=== PATIENT | female | born 1990 | race Caucasian/White ===

== ENCOUNTER 2019-02-02 11:23 | Inpatient (IN) | payer MEDICAID, OTHER ==
[2019-02-02 11:43] VITALS: RESP 16
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
[2019-02-02 12:55] LABS: Amphetamine Screen,Urine Not Detected (NotDetected); Barbiturate Screen,Urine Not Detected (NotDetected); Benzodiazepines Screen,Urine Not Detected (NotDetected); Cocaine Screen,Urine Not Detected (NotDetected); Methadone Screen, Urine Not Detected (NotDetected); Opiate Screen,Urine Not Detected (NotDetected); Oxycodone Screen, Urine Not Detected (NotDetected); Phencyclidine Screen,Urine Not Detected (NotDetected); Tricyclic Antidepressant,Urine Not Detected (NotDetected); Urn Cannabinoid Scrn Detected (NotDetected)
[2019-02-02] MEDS ORDERED: LORazepam 1 MG TAB PO STA (15:28)
[2019-02-02] MEDS ORDERED: MAGNESIUM HYDROXIDE 2,400 MG/10 ML CUP PO PRN (16:14)
[2019-02-02] MEDS ORDERED: MAG HYDROX/AL HYDROX/SIMETH 30 ML CUP PO PRN (16:14)
[2019-02-02] MEDS ORDERED: ACETAMINOPHEN TAB 325 MG TAB PO PRN (16:14)
[2019-02-02] MEDS ORDERED: LORazepam 1 MG TAB PO PRN (16:14)
[2019-02-02] MEDS ORDERED: ZIPRASIDONE 20 MG VIAL IM PRN (16:14)
[2019-02-02 16:34] LABS: Appearance,Urine Clear (Clear); Bilirubin,Urine Negative (Negative); Blood,Urine Moderate (Negative); Color,Urine Yellow; Glucose,Urine (UA) Negative (Negative); Ketones,Urine Negative (Negative); Leukocyte Esterase,Urine Negative (Negative); Nitrite,Urine Negative (Negative); Protein,Urine Negative (Negative); RBC,Urine 1 /hpf (0-5); Specific Gravity,Urine 1.012 (1.001-1.035); Squamous Epithelial Cell,Urine <1 /hpf (0-4); Urobilinogen,Urine <2.0 mg/dL (<2.0); WBC,Urine 1 /hpf (0-5)
[2019-02-02] MEDS: NICOTINE 7MG/24HR PATCH TRANSDERM SCH (17:45)
[2019-02-02 21:58] LABS: ALT 26 U/L (9-52); AST 25 U/L (14-36); African American GFR (CKD) >90 (>60 ml/min/1.73 sqM); Albumin 4.2 g/dL (3.5-5.0); Alkaline Phosphatase 73 U/L (38-126); Anion Gap 8 mmol/L; Blood Urea Nitrogen 9 mg/dL (7-17); Calcium 9.3 mg/dL (8.4-10.2); Carbon Dioxide 25 mmol/L (22-30); Chloride 106 mmol/L (98-107); Glucose 87 mg/dL (74-99); Non-African American GFR(CKD) 84 (>60 ml/min/1.73 sqM); Potassium 4.5 mmol/L (3.5-5.1); Sodium 139 mmol/L (137-145); Total Bilirubin 1.1 mg/dL (0.2-1.3); Total Protein 6.8 g/dL (6.3-8.2)
--- NOTE | 2019-02-03 06:31 | CONS ---
CONSULTATION REASON FOR CONSULTATION: Advice regarding anxiety, and other medical issues requested by psychiatrist. HISTORY OF PRESENT ILLNESS: This 28-year-old woman with a past medical history of anxiety, history of nicotine dependence, history of THC being followed by Dr. Nuno in the outpatient setting was admitted for psychiatric evaluation. The patient also complaining of right knee pain on the posterior part after contusion after fall and also complains of numbness of both legs and patient also has significant DJD of the neck and back also. The patient also had some telangiectasia lesions over the face at this time. There is no history of fever, rigors or chills. No history of headache, loss of consciousness or seizures. PAST MEDICAL HISTORY: History of anxiety, history of DJD, history of THC. Also history of asthma. MEDICATIONS: Prior to admission include home medications are: 1. Claritin 10 mg daily p.r.n. 2. Ventolin HFA 2 puffs q.6h p.r.n. ALLERGIES: None. FAMILY HISTORY: History of Morgellons disease, skin disorder. SOCIAL HISTORY: History of smoking, THC. REVIEW OF SYSTEMS: ENT as mentioned earlier. CARDIOVASCULAR: No angina. RESPIRATION: No cough. No hemoptysis. GI no nausea or vomiting. no dysuria or hematuria. NERVOUS SYSTEM: No numbness or weakness. ALLERGY/IMMUNOLOGY: As mentioned earlier. HEMATOLOGY/ONCOLOGY: No history of anemia. ENDOCRINE: No history of diabetes or hypothyroidism. CONSTITUTIONAL: as mentioned earlier. DERMATOLOGY: As mentioned earlier. RHEUMATOLOGY: Negative. PSYCHIATRIC: As mentioned earlier. PHYSICAL EXAMINATION: The patient is alert and oriented times three. Pulse 70. Blood pressure 124/80, respirations 16, temperature 97 degrees. Pulse ox 100 percent on room air. HEENT: Conjunctivae normal. Oral mucosa moist. NECK is no jugular venous distention. No carotid bruit. No lymph node enlargement. Otherwise, facial telangiectasia present which is blanching. CARDIOVASCULAR SYSTEM: S1, S2 muffled. No S3, no S4. RESPIRATORY: Breath sounds diminished in the bases. No rhonchi. No crackles. ABDOMEN: Soft, nontender. No mass palpable. LEGS: No edema. No swelling. NERVOUS SYSTEM: Higher functions as mentioned earlier. Moves all 4 limbs. No focal motor or sensory deficits. Lymphatics: No lymph nodes palpable in the neck, axillae or groin. SKIN: No ulcers. No rashes. No bleeding. JOINTS: No active deforming arthropathy. LABS: Urine and drug screen noted. THC positive. ASSESSMENT: 1. Anxiety/panic attacks for evaluation. 2. Facial telangiectasia. 3. Numbness of both feet. 4. Right knee posterior contusion. 5. History of THC. 6. History of anxiety. 7. History of nicotine dependence. 8. FULL CODE. RECOMMENDATIONS AND DISCUSSION: In this 28-year-old woman who presented with multiple medical issues, at this time, I recommend to continue current medications, continue symptomatic treatment. Otherwise, we will wait for the basic labs. The patient might need checking other liver functions also. Other than that, the patient may be asked to follow with primary physician regarding the followup of the above-mentioned medical issues. For the contusion, either Tylenol or Motrin may be used and further recommendations to follow. Thank you Dr. Shaffer for letting us participate in the care of this patient. MMCARLOSL / SAPPHIREN: [id number] /
[2019-02-03 09:05] LABS: Basophils # (A) 0.1 k/uL (0-0.2); Basophils % (A) 1 %; Eosinophils # (A) 0.5 k/uL (0-0.7); Eosinophils % (A) 8 %; HCT 43.6 % (34.0-46.0); HGB 14.4 gm/dL (11.4-16.0); Lymphocytes # (A) 1.8 k/uL (1.0-4.8); Lymphocytes % (A) 30 %; MCH 31.5 pg (25.0-35.0); MCHC 33.2 g/dL (31.0-37.0); MCV 95.1 fL (80.0-100.0); Mean Platelet Volume 8.3; Monocytes # (A) 0.4 k/uL (0-1.0); Monocytes % (A) 6 %; Neutrophils # (A) 3.2 k/uL (1.3-7.7); Neutrophils % (A) 53 %; Platelet Count 281 k/uL (150-450); RBC 4.58 m/uL (3.80-5.40); RDW 12.6 % (11.5-15.5); WBC 6.1 k/uL (3.8-10.6)
[2019-02-03] MEDS: NICOTINE 7MG/24HR PATCH TRANSDERM SCH (09:10)
[2019-02-03 09:20] LABS: ALT 28 U/L (9-52); AST 28 U/L (14-36); African American GFR (CKD) >90 (>60 ml/min/1.73 sqM); Albumin 4.4 g/dL (3.5-5.0); Alkaline Phosphatase 72 U/L (38-126); Anion Gap 10 mmol/L; Bilirubin, Delta 0.1 mg/dL (0.0-0.2); Bilirubin,Unconjugated 1.7 mg/dL (0.0-1.1); Blood Urea Nitrogen 14 mg/dL (7-17); Calcium 9.4 mg/dL (8.4-10.2); Carbon Dioxide 24 mmol/L (22-30); Chloride 106 mmol/L (98-107); Cholesterol 256 mg/dL (<200); Glucose 108 mg/dL (74-99); HDL Cholesterol 94 mg/dL (40-60); LDL Cholesterol,Calculated 147 mg/dL (0-99); Non-African American GFR(CKD) >90 (>60 ml/min/1.73 sqM); Potassium 4.3 mmol/L (3.5-5.1); Sodium 140 mmol/L (137-145); Total Bilirubin 1.8 mg/dL (0.2-1.3); Total Protein 7.3 g/dL (6.3-8.2); Triglycerides 73 mg/dL (<150)
[2019-02-03] MEDS ORDERED: hydrOXYzine PAMOATE 25 MG CAP PO PRN (12:03)
[2019-02-03] MEDS: SERTRALINE 25 MG TAB PO SCH (12:03)
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
[2019-02-03 20:09] LABS: Hemoglobin A1C 5.1 % (4.0-6.0)
[2019-02-03] MEDS: MELATONIN 3 MG TABLET PO PRN (21:14)
[2019-02-04] MEDS: SERTRALINE 25 MG TAB PO SCH (09:11)
[2019-02-04] MEDS: NICOTINE 7MG/24HR PATCH TRANSDERM SCH (09:11)
--- NOTE | 2019-02-04 12:41 | P.PN ---
Progress Note - Text Interval history: The patient's found in her room she follows me to an interview room. She indicates that her mood has been "overloaded with stress". We reviewed her psychotropic medication she had questions which were addressed. She indicates that she is attending groups. She is looking forward to a visit from her boyfriend this evening. We discussed that the plan would be to titrate the Zoloft further during the course of her stay. Mental status exam: The patient is alert she is pleasant cooperative. She is dressed in her own clothing hygiene grooming are adequate. Eye contact is good speech is fluent spontaneous nonpressured. She indicates her mood has been stressed she is reporting no acute suicidal or homicidal ideation intent or plan she feels safe in the hospital. She reports no auditory or visual hallucinations or any specific delusions. She reports no racing thoughts. She demonstrates no tangential thinking loose associations or flight of ideas. She does not appear hypomanic or manic. Insight and judgment grossly intact based on our session. She is oriented to person place and date. Plan: The patient will continue on her current psychotropic medication. We will plan to titrate the Zoloft further if she is tolerating the medication adequately. Vital signs reviewed. She is encouraged to fully participate in the milieu. Vital signs reviewed. We will await the outcome of family visits to assess her support.
[2019-02-04] MEDS: MELATONIN 3 MG TABLET PO PRN (19:23)
[2019-02-05] MEDS: NICOTINE 7MG/24HR PATCH TRANSDERM SCH (08:35)
[2019-02-05] MEDS: SERTRALINE 25 MG TAB PO SCH (08:36)
--- NOTE | 2019-02-05 11:45 | P.PN ---
Progress Note - Text Interval history: The patient is found in group she follows me to an interview room. She indicates that she is doing well. She reports her mood is improving. She had a good visit with her boyfriend evening. She describes future oriented goals such as getting employment and getting her own place. We reviewed her psychotropic medication and discussed titrating the Zoloft further she is agreeable. She reports that she is sleeping well at night appetite is stable. Mental status exam: The patient is alert she is dressed in her own clothing she demonstrates adequate hygiene grooming. She is pleasant cooperative. She indicates her mood is good. Affect is congruent she demonstrates an appropriate range of affect including smiling. She reports no hopelessness thinking she reports no suicidal ideation intent or plan. She reports no homicidal ideation intent or plan. She endorses no auditory or visual hallucinations or any specific delusions. There is no observed evidence of psychosis hypomania or geronimo. Thought process is linear she demonstrates no tangential thinking loose associations or flight of ideas. Insight and judgment improving. Plan: The patient will continue on her current psychotropic medications however we will titrate the Zoloft 50 mg daily. She is encouraged to continue participating in the milieu we will monitor for safety. Vital signs reviewed. It appears that she is clinically stabilizing.
[2019-02-05] MEDS: MELATONIN 3 MG TABLET PO PRN (21:24)
[2019-02-06] MEDS: NICOTINE 7MG/24HR PATCH TRANSDERM SCH (08:37)
[2019-02-06] MEDS: SERTRALINE 50 MG TAB PO SCH (08:37)
--- NOTE | 2019-02-06 12:03 | P.PN ---
Progress Note - Text Progress Note Date: 02/06/19 Interval History: Patient was seen taking part in groups today and other activities and was dire ctable and agreeable to speak to lead technical writer in the office. Patient states that she had a good weekend and claims that she had her boyfriend visited her and drop her off cloths and socks. She claims that she has been meeting other people on the unit and claims that it's been "humbling to be here". She states that she feels her depression and anxiety have been mildly improving and she feels more confident in herself. She denied any panic attacks over the weekend. She did state that her hands feel little bit clammy and has some anxiety. She states that she definitely feels the medication isn't helping her and claims that she will be taking her medications upon discharge. She claims that her energy is fair during the day and had difficult time sleeping last night. At this time patient denies any suicidal or homical ideations, intent or plan. Patient denies any auditory, visual hallucinations and denies any paranoia or delusions. Patient denies any side effects from the medications and has been compliant with meds. Mental Status Exam: General Appearance: Patient appears to be stated age is short/thin in stature, alert, attempts to cooperate. Fair hygiene and grooming. Behavior: Patient is calmly seated without any agitated behavior. Speech: Patient's speech is fluent and nonpressured. Soft tone. Mood/Affect: Patient reports their mood is mildly improving, affect is congruent and constricted. Suicidality/Homicidality: Patient denies having any suicidal or homicidal ideation intent or plan. Perceptions: Patient denies any auditory or visual hallucinations. Though content/process: There is no evidence of any delusional thought content and thought process is linear and goal-directed. Memory and concentration: AOX3, grossly intact for the purposes of this session Judgment and insight: Improving. Assessment Major depressive disorder, without psychotic features Anxiety disorder rule out panic disorder Cannabis abuse Nicotine dependence. Plan: -Patient continues to meet criteria for inpatient psychiatric admission for symptom stabilization and safety. Patient has signed adult voluntary form and medication consent and was placed in patient's chart. -Medications: Will continue Zoloft 50 mg daily for mood/anxiety. Increase melatonin to 5 mg nightly for sleep. Continue Vistaril and Ativan when necessary for anxiety. -When necessary Ativan and Geodon for agitation/aggression. -NRT - nicotine patch -SW on board for discharge planning. Patient likely be discharged tomorrow back home.
[2019-02-06] MEDS ORDERED: MELATONIN 5 MG TABLET PO SCH (21:00)
[2019-02-07 05:57] VITALS: BP 107/61; PULSE 77; TEMP 98.9
[2019-02-07] MEDS: SERTRALINE 50 MG TAB PO SCH (08:51)
[2019-02-07] MEDS: NICOTINE 7MG/24HR PATCH TRANSDERM SCH (08:51)
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
== END 2019-02-07 14:15 | disposition home or self-care (01) | DRG 885 ==
LOC: EC 11:23 → 3MHU 15:46
PROVIDERS: ADMIT Psychiatry & Neurology Psychiatry; ATTEND Psychiatry & Neurology Psychiatry
DX: F33.9 Major depressive disorder, recurrent, unspecified (principal); R45.851 Suicidal ideations; F12.10 Cannabis abuse, uncomplicated; F17.290 Nicotine dependence, other tobacco product, uncomplicated; F41.0 Panic disorder [episodic paroxysmal anxiety]; I78.1 Nevus, non-neoplastic; J45.909 Unspecified asthma, uncomplicated; M47.812 Spondylosis without myelopathy or radiculopathy, cervical region; Z79.899 Other long term (current) drug therapy
CPT/HCPCS: 80053; 80061; 80306; 81001; 81025; 82075; 82248; 83036; 84443; 85025; 99285

== ENCOUNTER 2022-06-05 00:18 | Emergency (ER) | payer OTHER ==
[2022-06-05 00:31] VITALS: BP 126/81; PULSE 114; RESP 18; TEMP 98
--- NOTE | 2022-06-05 00:51 | ED ---
Anxiety HPI - General Chief Complaint: Anxiety Stated Complaint: Mental Health Time Seen by Provider: 06/05/22 00:33 Source: patient Mode of arrival: ambulatory - History of Present Illness Initial Comments: Patient is a 31-year-old female presenting with anxiety. Patient is stressed stating that she thinks she "took too many vitamins". She tells me that she takes a variety of vitamins including calcium, vitamin D, biotin. She is worried about taking them all at the same time. She is also worried because she is a smoker and recently saw a picture of a woman who lost her jaw due to smoking. She states that her jaw has been hurting since seeing this picture. No chest pain or difficulty breathing. No abdominal pain, nausea, vomiting. No palpitations or weakness. No suicidal or homicidal ideation. - Related Data Home Medications: Home Medications Medication Instructions Recorded Confirmed Albuterol Inhaler [Ventolin Hfa 2 puff INHALATION RT-Q6H PRN 02/02/19 02/02/19 Inhaler] Loratadine [Claritin] 10 mg PO DAILY PRN 02/02/19 02/02/19 Previous Rx's Medication Instructions Recorded Melatonin 5 mg PO HS 28 Days tablet 02/07/19 Nicotine 7Mg/24Hr Patch [Habitrol] 1 patch TRANSDERM DAILY 14 Days 02/07/19 patch Sertraline [Zoloft] 50 mg PO DAILY 28 Days tab 02/07/19 Allergies/Adverse Reactions: Allergies Allergy/AdvReac Type Severity Reaction Status Date / Time No Known Allergies Allergy Verified 06/05/22 00:24 Review of Systems ROS Statement: Those systems with pertinent positive or pertinent negative responses have been documented in the HPI. ROS Other: All systems not noted in ROS Statement are negative. Past Medical History Past Medical History: No Reported History History of Any Multi-Drug Resistant Organisms: None Reported Past Surgical History: No Surgical Hx Reported Past Anesthesia/Blood Transfusion Reactions: No Reported Reaction Past Psychological History: Anxiety Smoking Status: Current every day smoker Past Alcohol Use History: None Reported Past Drug Use History: Marijuana - Past Family History Mother Family Medical History: Skin Disorder Additional Family Medical History / Comment(s): MORGELLAN'S DISEASE-SKIN DISORDER Father Family Medical History: No Reported History General Exam Limitations: no limitations General appearance: alert, in no apparent distress Head exam: Present: atraumatic, normocephalic, normal inspection Eye exam: Present: normal appearance, EOMI. Absent: periorbital swelling, periorbital tenderness Neck exam: Present: normal inspection, full ROM. Absent: tenderness, lymphadenopathy Respiratory exam: Present: normal lung sounds bilaterally. Absent: respiratory distress, wheezes, rales, rhonchi, stridor Cardiovascular Exam: Present: regular rate, normal rhythm, normal heart sounds. Absent: systolic murmur, diastolic murmur, rubs, gallop, clicks Neurological exam: Present: alert, oriented X3, CN II-XII intact Psychiatric exam: Present: anxious. Absent: homicidal ideation, suicidal ideation Skin exam: Present: warm, dry, intact, normal color. Absent: rash Course Vital Signs 06/05/22 00:24 Temperature 98 F Pulse Rate 114 H Respiratory 18 Rate Blood Pressure 126/81 O2 Sat by Pulse 98 Oximetry Medical Decision Making - Medical Decision Making Was pt. sent in by a medical professional or institution (, PA, ACCOUNTS PAYABLE SPECIALIST, urgent care, hospital, or [facility]...) When possible be specific @ -No Did you speak to anyone other than the patient for history (EMS, parent, family, police, friend...)? What history was obtained from this source @ -No Did you review nursing and triage notes (agree or disagree)? Why? @ -I reviewed and agree with nursing and triage notes Were old charts reviewed (outside hosp., previous admission, EMS record, old EKG, old radiological studies, urgent care reports/EKG's, [facility] records)? Report findings @ -No old charts were reviewed Differential Diagnosis (chest pain, altered mental status, abdominal pain women, abdominal pain men, vaginal bleeding, weakness, fever, dyspnea, syncope, headache, dizziness, GI bleed, back pain, seizure, CVA, palpatations, mental health, musculoskeletal)? @ -Differential Mental Health Depression, anxiety, bipolar, psychosis, schizophrenia, borderline personality, situational depression, adjustment disorder, behavioral disorder, brain tumor, malingering, substance abuse, encephalopathy, medication reaction, dementia, hypothyroidism, degenerative neurologic disorder, lupus.... This is not meant to be all-inclusive list EKG interpreted by me (3pts min.). @ -As above X-rays interpreted by me (1pt min.). @ -None done CT interpreted by me (1pt min.). @ -None done U/S interpreted by me (1pt. min.). @ -None done What testing was considered but not performed or refused? (CT, X-rays, U/S, labs)? Why? @ -None What meds were considered but not given or refused? Why? @ -None Did you discuss the management of the patient with other professionals (professionals i.e. Dr., PA, ACCOUNTS PAYABLE SPECIALIST, lab, RT, psych nurse, social worker assistant, cotton tipper, teacher, boating safety officer, rifle case repairer)? Give summary @ -No Was smoking cessation discussed for >3mins.? @ -Yes Was critical care preformed (if so, how long)? @ -No Were there social determinants of health that impacted care today? How? (Homelessness, low income, unemployed, alcoholism, drug addiction, transportation, low edu. Level, literacy, decrease access to med. care, care home, rehab)? @ -No Was there de-escalation of care discussed even if they declined (Discuss DNR or withdrawal of care, Hospice)? DNR status @ -No What co-morbidities impacted this encounter? (DM, HTN, Smoking, COPD, CAD, Cancer, CVA, ARF, Chemo, Hep., AIDS, mental health diagnosis, sleep apnea, morbid obesity)? @ -None Was patient admitted / discharged? Hospital course, mention meds given and route, prescriptions, significant lab abnormalities, going to OR and other pertinent info. @ -Patient is a 31-year-old female presenting with anxiety. She is worried that she takes too many vitamins and is worried that smoking will damage her jaw. Physical examination is unremarkable. Explained to the patient if she is following the directions on the bottles and taking vitamins advised by her PCP this should be acceptable. I also explained to her that smoking causes cancer of the jaw as well as lungs, esophagus, bladder, etc. I encouraged smoking cessation and discussed the health risks of smoking. Patient states that she feels reassured after the conversation and she feels [place]. She denies any suicidal or homicidal ideation. She would like to be discharged home at this time. Follow-up with PCP. Report back to ER with any new or worsening symptoms. Discussed return parameters and answered all questions. Patient conveyed verbal understanding and agreed to the plan. I discussed this case in detail with my attending Dr. Stiles Undiagnosed new problem with uncertain prognosis? @ -No Drug Therapy requiring intensive monitoring for toxicity (Heparin, Nitro, Insulin, Cardizem)? @ -No Were any procedures done? @ -No Diagnosis/symptom? @ -Anxiety Acute, or Chronic, or Acute on Chronic? @ -Acute Uncomplicated (without systemic symptoms) or Complicated (systemic symptoms)? @ -Uncomplicated Side effects of treatment? @ -No Exacerbation, Progression, or Severe Exacerbation? @ -No Poses a threat to life or bodily function? How? (Chest pain, [place], MA, pneumonia, PE, COPD, DKA, ARF, appy, cholecystitis, CVA, Diverticulitis, Homicidal, Suicidal, threat to staff... and all critical care pts) @ -No Disposition Clinical Impression: Acute anxiety Disposition: HOME SELF-CARE Condition: Good Instructions (If sedation given, give patient instructions): How to Stop Smoking (ED), Generalized Anxiety Disorder (ED) Additional Instructions: Follow-up with PCP. Report back to ER with any new or worsening symptoms. Stop smoking. Is patient prescribed a controlled substance at d/c from ED?: No Referrals: Hayes Nuno MD [Primary Care Provider] - 1-2 days Time of Disposition: 00:51
== END 2022-06-05 01:15 | disposition home or self-care (01) ==
LOC: EC 00:18
DX: F41.9 Anxiety disorder, unspecified (principal); F17.200 Nicotine dependence, unspecified, uncomplicated; F12.90 Cannabis use, unspecified, uncomplicated
CPT/HCPCS: 99282

== ENCOUNTER 2023-12-03 17:39 | Emergency (ER) | payer OTHER ==
[2023-12-03 18:03] VITALS: TEMP 98.6
--- NOTE | 2023-12-03 18:34 | ED ---
General Adult HPI - General Chief complaint: Headache Stated complaint: Anxiety Time Seen by Provider: 12/03/23 17:44 Source: patient, EMS, RN notes reviewed Mode of arrival: EMS Limitations: no limitations - History of Present Illness Initial comments: This is a 33-year-old female who presents to the emergency department for anxiety. States that when she woke up this morning she started to feel awful. Reports a headache and some chest pain. States that she felt like she could not get out of bed this morning as well. She is concerned that she could have had a seizure because her brother has seizures, but is not entirely sure. Denies any personal history of seizures. States that she may also be having a panic attack. States that she feels this way frequently but told EMS that she wanted to make sure she was not having a heart attack. - Related Data Home Medications Medication Instructions Recorded Confirmed Albuterol Inhaler [Ventolin Hfa 2 puff INHALATION RT-Q6H PRN 02/02/19 02/02/19 Inhaler] Loratadine [Claritin] 10 mg PO DAILY PRN 02/02/19 02/02/19 Previous Rx's Medication Instructions Recorded Melatonin 5 mg PO HS 28 Days tablet 02/07/19 Nicotine 7Mg/24Hr Patch [Habitrol] 1 patch TRANSDERM DAILY 14 Days 02/07/19 patch Sertraline [Zoloft] 50 mg PO DAILY 28 Days tab 02/07/19 Allergies Allergy/AdvReac Type Severity Reaction Status Date / Time No Known Allergies Allergy Verified 12/03/23 18:03 Review of Systems ROS Statement: Those systems with pertinent positive or pertinent negative responses have been documented in the HPI. ROS Other: All systems not noted in ROS Statement are negative. Past Medical History Past Medical History: No Reported History Additional Past Medical History / Comment(s): Anxiety History of Any Multi-Drug Resistant Organisms: None Reported Past Surgical History: No Surgical Hx Reported Past Anesthesia/Blood Transfusion Reactions: No Reported Reaction Past Psychological History: Anxiety Smoking Status: Current every day smoker Past Alcohol Use History: None Reported Past Drug Use History: Marijuana - Past Family History Mother Family Medical History: Skin Disorder Additional Family Medical History / Comment(s): MORGELLAN'S DISEASE-SKIN DISORDER Father Family Medical History: No Reported History General Exam Limitations: no limitations General appearance: alert, in no apparent distress Head exam: Present: atraumatic, normocephalic, normal inspection Respiratory exam: Present: normal lung sounds bilaterally. Absent: respiratory distress, wheezes, rales, rhonchi, stridor Cardiovascular Exam: Present: regular rate, normal rhythm, normal heart sounds. Absent: systolic murmur, diastolic murmur, rubs, gallop, clicks GI/Abdominal exam: Present: soft, normal bowel sounds. Absent: distended, tenderness, guarding, rebound, rigid Neurological exam: Present: alert, oriented X3, CN II-XII intact Psychiatric exam: Present: normal affect, normal mood Skin exam: Present: warm, dry, intact, normal color. Absent: rash Course Vital Signs 12/03/23 12/03/23 17:58 21:25 Temperature 98.6 F Pulse Rate 72 80 Respiratory 18 17 Rate Blood Pressure 123/80 126/86 O2 Sat by Pulse 98 98 Oximetry Medical Decision Making - Medical Decision Making This is a 33 year old female who presents to the emergency department for headaches, chest pain, and anxiety. Was pt. sent in by a medical professional or institution? @ -No Did you speak to anyone other than the patient for history? @ -No Did you review nursing and triage notes? @ -Yes, and I agree, it is accurate with regards to the patient's symptoms. Were old charts reviewed? @ -No Differential Diagnosis? @ -Differential Headache: Migraine, tension, cluster, carbon monoxide, central venous thrombosis, pension karma temporal arteritis, acute closure glaucoma, intercranial hemorrhage, mastoiditis, sinusitis, head injury, this is not meant to be an all-inclusive list. EKG interpreted by me (3pts min.)? @ -EKG interpreted by me demonstrating the following: Sinus rhythm. Ventricular rate 80 bpm, [place] interval 131 ms, QRS duration 81 ms, QTc 415 ms. X-rays interpreted by me (1pt min.)? @ -Chest x-ray obtained, my interpretation identifies no localized consolidations or infiltrates. CT interpreted by me (1pt min.)? @ -Not obtained U/S interpreted by me (1pt. min.)? @ -Not obtained What testing was considered but not performed? (CT, X-rays, U/S, labs)? Why? @ -None What meds were considered but not given? Why? @ -None Did you discuss the management of the patient with other professionals? @ -No Did you reconcile home meds? @ -No Was smoking cessation discussed for >3mins.? @ -I discussed smoking cessation for greater than 3 minutes. The risk of smoking were discussed with the patient including but not limited to risks of cancer, stroke, coronary artery disease and COPD. Also discussed with patient were multiple methods of quitting smoking. Lastly we discussed the financial cost of smoking. Was critical care preformed (if so, how long)? @ -No Were there social determinants of health that impacted care today? How? (Homelessness, low income, unemployed, alcoholism, drug addiction, transportation, low edu. Level, literacy, decrease access to med. care, long term, rehab)? @ -No Was there de-escalation of care discussed even if they declined? (Discuss DNR or withdrawal of care, Hospice)? @ -No What co-morbidities impacted this encounter? (DM, HTN, Smoking, COPD, CAD, Cancer, CVA, Hep., AIDS, mental health diagnosis, sleep apnea, morbid obesity)? @ -Smoking, anxiety Was patient admitted / discharged? @ -Discharged. Lab work demonstrates mild leukocytosis and was otherwise unremarkable. COVID, influenza, and RSV testing negative. Urinalysis negative for signs of infection. Chest x-ray reveals no acute process. Symptoms well- controlled in the emergency department. Patient discharged home in stable condition. Case discussed with ED attending Dr. Roberson. Return precautions reviewed in depth, the patient is instructed to return to the emergency department with any new, worsening, or concerning symptoms. Patient verbalized understanding. Undiagnosed new problem with uncertain prognosis? @ -None Drug Therapy requiring intensive monitoring for toxicity (Heparin, Nitro, Insulin, Cardizem)? @ -None Were any procedures done? @ -None Diagnosis/symptom? @ -Headache, anxiety, congestion Acute, or Chronic, or Acute on Chronic? @ -Acute Uncomplicated (without systemic symptoms) or Complicated (systemic symptoms)? @ -Uncomplicated Side effects of treatment? @ -None Exacerbation, Progression, or Severe Exacerbation] @ -Not applicable Poses a threat to life or bodily function? @ -No - Lab Data Result diagrams: 12/03/23 18:17 12/03/23 19:54 Lab Results 12/03/23 12/03/23 12/03/23 Range/Units 18:17 18:17 18:29 WBC 11.5 H (3.8-10.6) k/uL RBC 4.98 (3.80-5.40) m/uL Hgb 14.9 (11.4-16.0) gm/dL Hct 43.8 (34.0-46.0) % MCV 88.0 (80.0-100.0) fL MCH 29.9 (25.0-35.0) pg MCHC 34.0 (31.0-37.0) g/dL RDW 14.6 (11.5-15.5) % Plt Count 295 (150-450) k/uL MPV 8.5 Neutrophils % 72 % Lymphocytes % 19 % Monocytes % 5 % Eosinophils % 3 % Basophils % 0 % Neutrophils # 8.3 H (1.3-7.7) k/uL Lymphocytes # 2.2 (1.0-4.8) k/uL Monocytes # 0.5 (0-1.0) k/uL Eosinophils # 0.3 (0-0.7) k/uL Basophils # 0.0 (0-0.2) k/uL Sodium (137-145) mmol/L Potassium (3.5-5.1) mmol/L Chloride (98-107) mmol/L Carbon Dioxide (22-30) mmol/L Anion Gap mmol/L BUN (7-17) mg/dL Creatinine (0.52-1.04) mg/dL Est GFR (CKD-EPI)AfAm (>60 ml/min/1.73 sqM) Est GFR (CKD-EPI)NonAf (>60 ml/min/1.73 sqM) Glucose (74-99) mg/dL Calcium (8.4-10.2) mg/dL Total Bilirubin (0.2-1.3) mg/dL AST (14-36) U/L ALT (4-34) U/L Alkaline Phosphatase (38-126) U/L Troponin I <0.012 (0.000-0.034) ng/mL Total Protein (6.3-8.2) g/dL Albumin (3.5-5.0) g/dL Urine Color Urine Appearance (Clear) Urine pH (5.0-8.0) Ur Specific [place] (1.001-1.035) Urine Protein (Negative) Urine Glucose (UA) (Negative) Urine Ketones (Negative) Urine Blood (Negative) Urine Nitrite (Negative) Urine Bilirubin (Negative) Urine Urobilinogen (<2.0) mg/dL Ur Leukocyte Esterase (Negative) Urine HCG, Qual (Not Detectd) Urine Opiates Screen (NotDetected) Ur Oxycodone Screen (NotDetected) Urine Methadone Screen (NotDetected) Ur Barbiturates Screen (NotDetected) U Tricyclic Antidepress (NotDetected) Ur Phencyclidine Scrn (NotDetected) Ur Amphetamines Screen (NotDetected) U Methamphetamines Scrn (NotDetected) U Benzodiazepines Scrn (NotDetected) Urine Cocaine Screen (NotDetected) U Marijuana (THC) Screen (NotDetected) Influenza Type A (PCR) Not Detected (Not Detectd) Influenza Type B (PCR) Not Detected (Not Detectd) RSV (PCR) Not Detected (Not Detectd) SARS-CoV-2 (PCR) Not Detected (Not Detectd) 12/03/23 12/03/23 12/03/23 Range/Units 19:54 20:50 20:50 WBC (3.8-10.6) k/uL RBC (3.80-5.40) m/uL Hgb (11.4-16.0) gm/dL Hct (34.0-46.0) % MCV (80.0-100.0) fL MCH (25.0-35.0) pg MCHC (31.0-37.0) g/dL RDW (11.5-15.5) % Plt Count (150-450) k/uL MPV Neutrophils % % Lymphocytes % % Monocytes % % Eosinophils % % Basophils % % Neutrophils # (1.3-7.7) k/uL Lymphocytes # (1.0-4.8) k/uL Monocytes # (0-1.0) k/uL Eosinophils # (0-0.7) k/uL Basophils # (0-0.2) k/uL Sodium 138 (137-145) mmol/L Potassium 3.9 (3.5-5.1) mmol/L Chloride 112 H (98-107) mmol/L Carbon Dioxide 18 L (22-30) mmol/L Anion Gap 8 mmol/L BUN 9 (7-17) mg/dL Creatinine 0.47 L (0.52-1.04) mg/dL Est GFR (CKD-EPI)AfAm >90 (>60 ml/min/1.73 sqM) Est GFR (CKD-EPI)NonAf >90 (>60 ml/min/1.73 sqM) Glucose 87 (74-99) mg/dL Calcium 8.4 (8.4-10.2) mg/dL Total Bilirubin 0.8 (0.2-1.3) mg/dL AST 20 (14-36) U/L ALT 11 (4-34) U/L Alkaline Phosphatase 100 (38-126) U/L Troponin I (0.000-0.034) ng/mL Total Protein 6.5 (6.3-8.2) g/dL Albumin 3.9 (3.5-5.0) g/dL Urine Color Colorless Urine Appearance Clear (Clear) Urine pH 6.5 (5.0-8.0) Ur Specific [place] 1.005 (1.001-1.035) Urine Protein Negative (Negative) Urine Glucose (UA) Negative (Negative) Urine Ketones Trace H (Negative) Urine Blood Negative (Negative) Urine Nitrite Negative (Negative) Urine Bilirubin Negative (Negative) Urine Urobilinogen <2.0 (<2.0) mg/dL Ur Leukocyte Esterase Negative (Negative) Urine HCG, Qual Not Detected (Not Detectd) Urine Opiates Screen Not Detected (NotDetected) Ur Oxycodone Screen Not Detected (NotDetected) Urine Methadone Screen Not Detected (NotDetected) Ur Barbiturates Screen Not Detected (NotDetected) U Tricyclic Antidepress Not Detected (NotDetected) Ur Phencyclidine Scrn Not Detected (NotDetected) Ur Amphetamines Screen Not Detected (NotDetected) U Methamphetamines Scrn Not Detected (NotDetected) U Benzodiazepines Scrn Not Detected (NotDetected) Urine Cocaine Screen Not Detected (NotDetected) U Marijuana (THC) Screen Not Detected (NotDetected) Influenza Type A (PCR) (Not Detectd) Influenza Type B (PCR) (Not Detectd) RSV (PCR) (Not Detectd) SARS-CoV-2 (PCR) (Not Detectd) - Radiology Data Radiology results: report reviewed, image reviewed Disposition Clinical Impression: Headache, Chest congestion, Nicotine dependence Disposition: HOME SELF-CARE Instructions (If sedation given, give patient instructions): Acute Headache (ED) Additional Instructions: Return to the emergency department with any new, worsening, or concerning symptoms. Follow up with your primary care provider in 1-2 days. Is patient prescribed a controlled substance at d/c from ED?: No Referrals: None,Stated [Primary Care Provider] - 1-2 days Time of Disposition: 21:02
[2023-12-03] MEDS: KETOROLAC 15 MG/ML 1 ML VIAL IVP STA ×2 (18:47→21:18)
[2023-12-03] MEDS: SODIUM CHLORIDE 0.9% 1,000 ML IV STA (18:48)
[2023-12-03] MEDS: LORazepam 2 MG/ML INJ IV STA (18:48)
[2023-12-03] MEDS: ONDANSETRON 4 MG/2 ML VIAL IVP STA (19:00)
[2023-12-03 19:04] LABS: Basophils % (A) 0 %; Eosinophils # (A) 0.3 k/uL (0-0.7); Eosinophils % (A) 3 %; HCT 43.8 % (34.0-46.0); HGB 14.9 gm/dL (11.4-16.0); Lymphocytes # (A) 2.2 k/uL (1.0-4.8); Lymphocytes % (A) 19 %; MCH 29.9 pg (25.0-35.0); Mean Platelet Volume 8.5; Monocytes # (A) 0.5 k/uL (0-1.0); Monocytes % (A) 5 %; Neutrophils # (A) 8.3 k/uL (1.3-7.7); Neutrophils % (A) 72 %; Platelet Count 295 k/uL (150-450); RBC 4.98 m/uL (3.80-5.40); RDW 14.6 % (11.5-15.5); WBC 11.5 k/uL (3.8-10.6)
--- NOTE | 2023-12-03 20:12 | XR ---
EXAMINATION TYPE: XR chest 2V DATE OF EXAM: 12/03/2023 COMPARISON: None INDICATION: Chest pain TECHNIQUE: Frontal and lateral views of the chest are obtained. FINDINGS: The heart size is normal. The pulmonary vasculature is normal. The lungs are clear. IMPRESSION: 1. No acute pulmonary process. [facility], Workstation: [facility], 12/03/2023 8:10 PM
[2023-12-03 20:27] LABS: ALT 11 U/L (4-34); AST 20 U/L (14-36); African American GFR (CKD) >90 (>60 ml/min/1.73 sqM); Albumin 3.9 g/dL (3.5-5.0); Alkaline Phosphatase 100 U/L (38-126); Anion Gap 8 mmol/L; Blood Urea Nitrogen 9 mg/dL (7-17); Calcium 8.4 mg/dL (8.4-10.2); Carbon Dioxide 18 mmol/L (22-30); Chloride 112 mmol/L (98-107); Glucose 87 mg/dL (74-99); Non-African American GFR(CKD) >90 (>60 ml/min/1.73 sqM); Potassium 3.9 mmol/L (3.5-5.1); Sodium 138 mmol/L (137-145); Total Bilirubin 0.8 mg/dL (0.2-1.3); Total Protein 6.5 g/dL (6.3-8.2)
[2023-12-03 21:00] LABS: Appearance,Urine Clear (Clear); Bilirubin,Urine Negative (Negative); Blood,Urine Negative (Negative); Color,Urine Colorless; Glucose,Urine (UA) Negative (Negative); Ketones,Urine Trace (Negative); Leukocyte Esterase,Urine Negative (Negative); Nitrite,Urine Negative (Negative); PH, Urine 6.5 (5.0-8.0); Protein,Urine Negative (Negative); Specific Gravity,Urine 1.005 (1.001-1.035); Urobilinogen,Urine <2.0 mg/dL (<2.0)
[2023-12-03] MEDS: ONDANSETRON 4 MG ODT STARTER PACK 2 TAB BTL PO STA (21:18)
[2023-12-03 21:19] LABS: Amphetamine Screen,Urine Not Detected (NotDetected); Barbiturate Screen,Urine Not Detected (NotDetected); Benzodiazepines Screen,Urine Not Detected (NotDetected); Cocaine Screen,Urine Not Detected (NotDetected); Methadone Screen, Urine Not Detected (NotDetected); Opiate Screen,Urine Not Detected (NotDetected); Oxycodone Screen, Urine Not Detected (NotDetected); Phencyclidine Screen,Urine Not Detected (NotDetected); Tricyclic Antidepressant,Urine Not Detected (NotDetected); Urn Cannabinoid Scrn Not Detected (NotDetected)
[2023-12-03] MEDS: MORPHINE SULFATE 2 MG/ML SYRINGE IVP STA (21:20)
[2023-12-03 21:31] VITALS: BP 126/86; PULSE 80; RESP 17
== END 2023-12-03 21:39 | disposition home or self-care (01) ==
LOC: EC 17:39
CPT/HCPCS: 36415; 71046; 80053; 80306; 81003; 81025; 84484; 85025; 87636; 93005; 96361; 96374; 96375; 96376; 99285; 99406